=== PATIENT | female | born 1955 ===

== ENCOUNTER 2024-05-27 07:13 | Day surgery (SDC) | payer OTHER ==
[2024-05-24 11:36] VITALS: BP 133/76
[~2024-05-27] VITALS: Ht 157.5 cm; Wt 62.6 kg
[~2024-05-27 07:13] MED LIST: ANASTROZOLE1 MG PO
[2024-05-27] MEDS ORDERED: BUPIVACAINE HCL/MPF 0.5% 30ML VIAL ONE (11:50)
[2024-05-27] MEDS ORDERED: LIDOCAINE HCL 1%/EPINEPHRINE 20ML VIAL IJ ONE (11:53)
[2024-05-27] MEDS ORDERED: TRAM1TAB98 PO (12:19)
[2024-05-27] MEDS ORDERED: CEFAZOLIN SODIUM 1,000 MG VIAL ONE (12:20)
[2024-05-27] MEDS ORDERED: HEPARIN SODIUM,PORCINE/PF 100 UNIT/ML SYRINGE IV ONE (12:28)
[2024-05-27] MEDS ORDERED: EPINEPHRINE HCL/PF 1 MG/ML AMPUL ONE (12:29)
[2024-05-27] MEDS ORDERED: NEURONTIN300 MG PO (12:41)
== END 2024-05-27 14:45 | disposition home or self-care (01) ==
LOC: CIR.AMB 07:13
PROVIDERS: ATTEND Surgery
DX: C50.011 Malignant neoplasm of nipple and areola, right female breast (principal); Z88.6 Allergy status to analgesic agent; Z91.09 Other allergy status, other than to drugs and biological substances; M19.90 Unspecified osteoarthritis, unspecified site
CPT/HCPCS: 36561; C1751